=== PATIENT | female | born 1995 | race Hispanic/Latino ===

== ENCOUNTER 2017-11-06 16:35 | Emergency (ER) | payer MEDICAID | END 2017-11-06 17:26 | disposition home or self-care (01) | LOC: EDH 16:35 | DX: O90.0 Disruption of cesarean delivery wound (principal) ==

== ENCOUNTER 2020-02-16 10:49 | Emergency (ER) | payer MEDICAID, OTHER ==
[2020-02-16] MEDS ORDERED: ACETAMINOPHEN EXTRA STRENGTH 500 MG TABLET ONE (11:02)
[2020-02-16 11:43] LABS: APPEARANCE,URINE Cloudy (CLEAR); BILIRUBIN,URINE Negative (NEGATIVE); COLOR,URINE Yellow (YELLOW); GLUCOSE, URINE (UA) Negative (NEGATIVE); KETONES,URINE Negative (NEGATIVE); LEUKOCYTE ESTERASE ,URINE Moderate (NEGATIVE); NITRATE,URINE Negative (NEGATIVE); OCCULT BLOOD,URINE Nonhemolyzed Trace (NEGATIVE); PROTEIN,URINE Trace mg/dL (NEGATIVE)
[2020-02-16 11:58] LABS: BACTERIA,URINE Moderate /HPF (None Seen); RBC,URINE 0-1 /HPF (0-1); WBC,URINE 26-50 /HPF (0-1)
== END 2020-02-16 12:21 | disposition home or self-care (01) ==
LOC: EDH 10:49
DX: N39.0 Urinary tract infection, site not specified (principal); B34.9 Viral infection, unspecified; Z98.51 Tubal ligation status; Z98.890 Other specified postprocedural states
CPT/HCPCS: 71045; 81001; 87077; 87088; 87186; 87804

== ENCOUNTER 2024-05-17 11:14 | Emergency (ER) | payer BC, OTHER ==
[~2024-05-17] VITALS: Ht 157.5 cm; Wt 79.4 kg
[2024-05-17 12:46] LABS: BASOPHILS # (AUTO) 0.04 K/uL (0.00-0.20); BASOPHILS % (AUTO) 0.4 % (0.0-5.0); EOSINOPHILS # (AUTO) 0.06 K/uL (0.00-0.70); EOSINOPHILS % (AUTO) 0.7 % (0.0-8.0); HEMATOCRIT 41.7 % (36-48); IMMATURE GRANULOCYTE ABSOLUTE 0.03 K/uL (0-1); LYMPHOCYTES # (AUTO) 2.6 K/uL (1.0-4.8); LYMPHOCYTES % (AUTO) 28.2 % (21.0-51.0); MEAN CORPUSCULAR HEMOGLOBIN 27.7 pg (27.0-33.0); MEAN CORPUSCULAR HGB CONC 33.3 g/dL (32.0-36.0); MEAN CORPUSCULAR VOLUME 83.2 fL (79-99); MONOCYTES # (AUTO) 0.6 K/uL (0.1-1.0); MONOCYTES % (AUTO) 6.4 % (3.0-13.0); NEUTROPHILS # (AUTO) 5.9 K/uL (1.8-7.7); PLATELET COUNT (AUTO) 402 K/uL (130-400); RED BLOOD CELL COUNT(AUTO) 5.01 MIL/uL (4.00-5.50); WHITE BLOOD COUNT (AUTO) 9.2 K/uL (4.8-10.8)
[2024-05-17 13:00] LABS: ALBUMIN 3.6 g/dL (3.5-5.0); BILIRUBIN,TOTAL 0.4 mg/dL (0.2-1.0); CREATININE 0.6 mg/dL (0.5-1.0); POTASSIUM 4.4 mmol/L (3.5-5.1); TOTAL PROTEIN, SERUM 8.3 g/dL (6.0-8.3)
[2024-05-17 13:02] LABS: APPEARANCE,URINE CLEAR (CLEAR); BILIRUBIN,URINE NEGATIVE (NEGATIVE); COLOR,URINE COLORLESS (YELLOW); GLUCOSE, URINE (UA) NEGATIVE (NEGATIVE); KETONES,URINE NEGATIVE (NEGATIVE); LEUKOCYTE ESTERASE ,URINE NEGATIVE Leu/uL (NEGATIVE); NITRATE,URINE NEGATIVE (NEGATIVE); OCCULT BLOOD,URINE NEGATIVE (NEGATIVE); PROTEIN,URINE NEGATIVE (NEGATIVE); UROBILINOGEN,URINE 0.2 mg/dL (0.2-1.0)
[2024-05-17 13:05] LABS: HCG,QUALITATIVE URINE NEGATIVE (NEGATIVE)
[2024-05-17 13:06] LABS: ADD UA MICROSCOPIC NO
[2024-05-17] MEDS: FAMOTIDINE 20MG VIAL IV ONE (13:55)
[2024-05-17] MEDS: 0.9%NACL 1000ML 1,000 ML IV ONE (13:55)
[2024-05-17] MEDS ORDERED: SUCR1TAB28 PO (14:17)
[2024-05-17] MEDS ORDERED: OMEP40CA21 PO (14:17)
[2024-05-17 15:27] VITALS: BP 112/76; PULSE 69; RESP 20; O2SAT 99
== END 2024-05-17 15:28 | disposition home or self-care (01) ==
LOC: EDH 11:14
DX: K29.00 Acute gastritis without bleeding (principal); Z98.890 Other specified postprocedural states
CPT/HCPCS: 99284; 96374; 80053; 83690; 85025; 81003; 81025; 36415; J3490; J7030